=== PATIENT | male | born 1980 | race Asian ===

== ENCOUNTER 2018-05-29 17:02 | Emergency (ER) | payer OTHER ==
[~2018-05-29] VITALS: Ht 175.3 cm; Wt 70.5 kg
[2018-05-29] MEDS ORDERED: IBUP-1506 PO (17:19)
[2018-05-29] MEDS ORDERED: KETOROLAC TROMETHAMINE 30 MG/ML VIAL IM ONE (20:45)
[2018-05-29 21:07] VITALS: BP 139/83
== END 2018-05-29 21:13 | disposition home or self-care (01) ==
LOC: EMS 17:03
DX: M10.9 Gout, unspecified (principal); R03.0 Elevated blood-pressure reading, without diagnosis of hypertension; H91.3 Deaf nonspeaking, not elsewhere classified
CPT/HCPCS: 96372; 99283; J1885